=== PATIENT | female | born 1965 | race African-American/Black ===

== ENCOUNTER 2017-09-25 16:05 | Emergency (ER) | payer MEDICAID ==
[~2017-09-25] VITALS: Ht 160 cm; Wt 55.0 kg
[~2017-09-25 16:05] MED LIST: CYCL5TAB PO; NAPROXEN
[2017-09-25] MEDS ORDERED: KETOROLAC 30MG/ML VIAL IM ONE (20:15)
[2017-09-25] MEDS ORDERED: IBUPROFEN 600MG TABLET PO ONE (20:45)
[2017-09-25 21:47] VITALS: BP 145/76
== END 2017-09-25 21:51 | disposition home or self-care (01) ==
LOC: ER 16:05
DX: M54.5 Low back pain (principal); M79.605 Pain in left leg; M79.604 Pain in right leg; R03.0 Elevated blood-pressure reading, without diagnosis of hypertension; F17.210 Nicotine dependence, cigarettes, uncomplicated; F12.90 Cannabis use, unspecified, uncomplicated; Z88.5 Allergy status to narcotic agent
CPT/HCPCS: 99283